=== PATIENT | female | born 1970 | race Caucasian/White ===

== ENCOUNTER → 2024-06-30 | Outpatient (CLI) | payer BC, SELFPAY ==
--- NOTE | 2024-06-30 15:30 | XR_ITS ---
Examination: CT pelvis without intravenous contrast. 2-D sagittal and coronal reconstructions. Date and time of exam:June 30, 2024 1600 hours INDICATIONS: Diagnosis left inguinal hernia without obstruction 5 months ago CTDI: vol (mGy) :10.5 DLP: (mGycm) : 330 Technique: Multiple 3 mm axial sections of the pelvis have been obtained with the 64 slice high resolution scanner. 2-D sagittal and coronal reconstructions. Low dose protocols were performed. One or more of the following dose reduction techniques were used; automated exposure control, adjustment of the mA and/or KV according to patient size, use of iterative reconstruction technique. Findings: Normal appendix No bowel obstruction Anterior fat-containing pelvic wall hernia defect, axial image 56, 20 mm Anteverted uterus Urinary bladder intact Stable sclerotic foci left acetabulum left iliac bone on right femoral head left ischium IMPRESSION: Anterior fat-containing pelvic wall hernia defect, axial image 56, measuring 20 mm
== END | disposition home or self-care (01) ==
PROVIDERS: PCP Family Medicine; Referring Provider Surgery; Visit Provider Surgery
DX: K40.90 Unilateral inguinal hernia, without obstruction or gangrene, not specified as recurrent (principal)
CPT/HCPCS: 72192

== ENCOUNTER 2024-07-27 06:50 | Day surgery (SDC) | payer BC, SELFPAY ==
[2024-07-26 07:34] VITALS: BMI 32.0
[2024-07-26 08:38] LABS: Basophils % (Auto) 1 % (0-2.5); Eosinophils # (Auto) 0.2 Thou/mm3 (0.0-0.5); Eosinophils % (Auto) 3 % (0-10); Hematocrit 38.1 % (36.0-46.0); Hemoglobin 12.7 g/dL (12.0-16.0); Immature Granulocytes % (Auto) 0 % (0-0); Immature Granulocytes Auto 0.02 Thou/mm3 (0.00-0.00); Lymphocytes # (Auto) 1.5 Thou/mm3 (1.0-4.8); Lymphocytes % (Auto) 26 % (10-50); Mean Corpuscular HGB Conc 33.3 g/dl (31.0-37.0); Mean Corpuscular Hemoglobin 29.6 pg (25.0-35.0); Mean Corpuscular Volume 89 fL (80-100); Monocytes # (Auto) 0.5 Thou/mm3 (0.0-0.8); Monocytes % (Auto) 8 % (0-12); Neutrophils # (Auto) 3.7 Thou/mm3 (1.8-7.7); Neutrophils % (Auto) 63 % (37-80); Nucleated Red Blood Cell % 0 /100 WBC (0); Platelet Count 255 Thou/mm3 (140-440); RDW Standard Deviation 42.1 fL (36.4-46.3); Red Blood Count 4.29 Miln/mm3 (4.00-5.20); White Blood Count 5.9 Thou/mm3 (3.6-11.0)
[2024-07-26 08:46] LABS: Partial Thromboplastin Time 27.1 Seconds (22.0-36.0); Prothrombin Time 10.9 Seconds (9.0-12.2)
[2024-07-26 08:53] LABS: Alanine Aminotransferase 18 U/L (10-49); Albumin, Serum 4.5 gm/dL (3.5-5.0); Albumin/Globulin Ratio 1.4 (1.2-2.2); Alkaline Phosphatase 91 U/L (46-116); Anion Gap 4 (7-16); Aspartate Amino Transferase 22 U/L (0-34); BUN/Creatinine Ratio 20 Ratio (12-20); Bilirubin,Total 0.3 mg/dL (0.3-1.2); Blood Urea Nitrogen 16 mg/dL (9-23); Calcium 9.3 mg/dL (8.3-10.6); Calcium (Corrected) 9.3 mg/dL (8.5-10.1); Carbon Dioxide 30.8 mMol/L (20.0-31.0); Chloride 105 mMol/L (98-107); Creatinine (Component) 0.8 mg/dL (0.6-1.3); Estimated Creatinine Clearance 85.7 mL/min (>60); Globulin 3.2 gm/dL (2.3-3.5); Glucose 99 mg/dL (74-106); Osmolality,Calculated 280 (275-295); Potassium 3.6 mMol/L (3.4-5.1); Sodium 140 mMol/L (136-145); Total Protein 7.7 gm/dL (5.7-8.2); eGFR > 60 See Note
[2024-07-27] VITALS (11 sets, daily range): BP systolic 111–137; BP diastolic 65–85; PULSE 64–89; RESP 13–21; TEMP 36.1–36.6; O2SAT 95–98; BMI 32.1
[2024-07-27] MEDS: RINGERS LACTATED 1000 ML 1,000 ML 20 ML IV (07:33)
--- NOTE | 2024-07-27 11:25 | SUR.PHASEI ---
pt received from OR in recovery bay 7. pt obtunded, breathing labored on oxymask 15, oral airway in place. v/s stable. pt dressing to lower abd cdi. report received from Mikey Elliott and Dr. Reed.
--- NOTE | 2024-07-27 11:31 | ESOP_ITS ---
Date of Procedure 07/27/24 Pre Op Diagnosis Incisional hernia over the left lower quadrant following TRAM flap Post Op Diagnosis Same Procedure Repair of the incisional hernia in the lower abdomen with placement of Ventralex ST 2.5 inches in diameter. Findings Patient was found to have a defect in the lower abdomen on the fascia which was presenting as an incisional hernia the defect measured about 5 cm in diameter requiring a mesh Procedure Description After the patient was brought to the operating room and due to clearances given. Cuevas catheter was inserted because of the lower abdominal incision. The lower abdomen and pelvic area was washed with ChloraPrep solution and draped in a sterile manner. Timeout was performed. Then I made an incision over the previous surgical scar which was used for the TRAM flap. This incision was about 5 to 6 cm in length. There was fair amount of subcutaneous tissue because of her obesity. Then I reached the fascia and found out that the patient had a defect of about 5 cm. I opened the defect and found out that there is a redundant peritoneum which presented as a sac. I excised the redundant sac and closed it with a 2-0 Vicryl. I was able to feel a mesh that was used during the reconstruction of the abdominal wall following this time flap. This mass was fairly large and extending over the anterior abdominal wall. The edge of the mesh was obviously the upper portion of the defect. The lower portion was closed to the inguinal ligament. I dissected out the tissues and then I placed the mesh see above the peritoneum after it was closed. The straps were attached to the edges using 2-0 Prolene. The subcutaneous tissue was then closed with 3- 0 chromic and 3-0 plain and the skin was closed with 4-0 Monocryl subcuticular stitch after injecting local anesthesia. Cuevas catheter was removed at the end of the procedure. Patient tolerated the procedure well and returned to recovery room in stable condition. Anesthesia GETA Implants 2.[address] mesh Pathology / specimen None IVF Infused 700 Estimated Blood Loss 20 Surgeon Lana Moss MD Surgical Staff Operation Date: 07/27/24 10:30 Case Staff Anesthesiologist: Quoc Reed RN First Assistant: Nani Bass
--- NOTE | 2024-07-27 11:41 | SUR.PHASEI ---
pt resting in [place] with eyes closed, responds to voice, breathing unlabored, dressing to lower left abdomen clean, dry, and intact, report from Curry PALAFOX
[2024-07-27] MEDS: fentaNYL CIT INJ 50 mCg/ML AMP 2ML 25 MCG IV ×2 (11:57→12:13)
--- NOTE | 2024-07-27 12:10 | SUR.PHASEII ---
pt tolerating oral fluids without difficulty swallowing or n/v
--- NOTE | 2024-07-27 12:15 | SUR.PHASEII ---
report to Curry PALAFOX
[2024-07-27] MEDS: ONDANSETRON INJ 2 MG/ML INJ 2 ML 4 MG IV (13:26)
--- NOTE | 2024-07-27 13:30 | SUR.PHASEII ---
pt awake and alert, breathing unlabored on room air. v/s stable. pt dressing to lower abd cdi. pt able to ambulate to wheelchair with steady gait. d/c instructions given with Joseluis in room using material hauler Pooja senior, all questions answered. pt d/c via wheelchair with all belongings.
== END 2024-07-27 13:30 | disposition home or self-care (01) ==
PROVIDERS: PCP Family Medicine; Referring Provider Surgery; Visit Provider Surgery
PROC: (CPT 49593; principal; 2024-07-27 10:15)
DX: K43.2 Incisional hernia without obstruction or gangrene (principal)
CPT/HCPCS: 49593; 36415; 80053; 85025; 85610; 85730; A4217; A4649; C1781; J1100; J1885; J2250; J2405; J2704; J3010; J3490; J7120

== ENCOUNTER → 2024-08-25 | Outpatient (CLI) | payer BC, SELFPAY ==
[2024-08-25 13:01] LABS: Basophils % (Auto) 1 % (0-2.5); Eosinophils # (Auto) 0.2 Thou/mm3 (0.0-0.5); Eosinophils % (Auto) 3 % (0-10); Hematocrit 37.8 % (36.0-46.0); Hemoglobin 13.5 g/dL (12.0-16.0); Immature Granulocytes % (Auto) 0 % (0-0); Immature Granulocytes Auto 0.02 Thou/mm3 (0.00-0.00); Lymphocytes # (Auto) 1.7 Thou/mm3 (1.0-4.8); Lymphocytes % (Auto) 28 % (10-50); Mean Corpuscular HGB Conc 35.7 g/dl (31.0-37.0); Mean Corpuscular Hemoglobin 31.1 pg (25.0-35.0); Mean Corpuscular Volume 87 fL (80-100); Monocytes # (Auto) 0.4 Thou/mm3 (0.0-0.8); Monocytes % (Auto) 7 % (0-12); Neutrophils # (Auto) 3.6 Thou/mm3 (1.8-7.7); Neutrophils % (Auto) 61 % (37-80); Nucleated Red Blood Cell % 0 /100 WBC (0); Platelet Count 286 Thou/mm3 (140-440); RDW Standard Deviation 40.6 fL (36.4-46.3); Red Blood Count 4.34 Miln/mm3 (4.00-5.20); White Blood Count 5.9 Thou/mm3 (3.6-11.0)
[2024-08-25 13:20] LABS: Alanine Aminotransferase 18 U/L (10-49); Albumin, Serum 4.4 gm/dL (3.5-5.0); Albumin/Globulin Ratio 1.4 (1.2-2.2); Alkaline Phosphatase 96 U/L (46-116); Anion Gap 9 (7-16); Aspartate Amino Transferase 19 U/L (0-34); BUN/Creatinine Ratio 26 Ratio (12-20); Bilirubin,Total 0.3 mg/dL (0.3-1.2); Blood Urea Nitrogen 18 mg/dL (9-23); Calcium 9.6 mg/dL (8.3-10.6); Calcium (Corrected) 9.6 mg/dL (8.5-10.1); Carbon Dioxide 28.1 mMol/L (20.0-31.0); Chloride 104 mMol/L (98-107); Creatinine (Component) 0.7 mg/dL (0.6-1.3); Globulin 3.1 gm/dL (2.3-3.5); Glucose 100 mg/dL (74-106); Osmolality,Calculated 283 (275-295); Potassium 4.2 mMol/L (3.4-5.1); Sodium 141 mMol/L (136-145); Total Protein 7.5 gm/dL (5.7-8.2); eGFR > 60 See Note
== END | disposition home or self-care (01) ==
PROVIDERS: PCP Family Medicine; Referring Provider Internal Medicine Hematology & Oncology; Visit Provider Internal Medicine Hematology & Oncology
DX: C50.411 Malignant neoplasm of upper-outer quadrant of right female breast (principal)
CPT/HCPCS: 36415; 80053; 85025

== ENCOUNTER 2024-08-31 09:27 | Outpatient (RCR) | payer BC, SELFPAY | END 2024-09-29 23:59 | disposition home or self-care (01) | LOC: SCTC 09:27 | PROVIDERS: PCP Family Medicine; Referring Provider Family Medicine; Visit Provider Nurse Practitioner Family | DX: Z08 Encounter for follow-up examination after completed treatment for malignant neoplasm (principal); Z85.3 Personal history of malignant neoplasm of breast; Z90.11 Acquired absence of right breast and nipple; Z92.21 Personal history of antineoplastic chemotherapy; Z92.29 Personal history of other drug therapy | CPT/HCPCS: 99212; G0463 ==

== ENCOUNTER → 2024-09-20 | Outpatient (CLI) | payer BC, SELFPAY ==
--- NOTE | 2024-09-20 14:45 | XR_ITS ---
Examination: Screening digital mammography, unilateral left Computer aided detection 3-D breast Tomosynthesis, unilateral Date and time of exam: September 20, 2024 1446 hrs. Compared to mammograms dating to September 29, 2017 Indication: Screening, personal history right breast cancer Technique: Nonmagnified MLO, CC views of the left breast to been obtained, reconstructed from 3-D Tomosynthesis images. R2 computer aided detection program utilized for evaluation of suspicious masses and/or abnormal calcifications. 3-D Tomosynthesis images obtained. Findings: The breast is heterogeneously dense, which may obscure small masses Benign calcifications No interval suspicious masses Impression: BI-RADS category II Benign findings Recommend 1 year follow-up mammogram.
== END | disposition home or self-care (01) ==
LOC: CDIM 14:28
PROVIDERS: PCP Family Medicine; Referring Provider Nurse Practitioner Family; Visit Provider Nurse Practitioner Family
DX: Z12.31 Encounter for screening mammogram for malignant neoplasm of breast (principal); R92.322 Mammographic fibroglandular density, left breast; R92.1 Mammographic calcification found on diagnostic imaging of breast; Z85.3 Personal history of malignant neoplasm of breast
CPT/HCPCS: 77063; 77067

== ENCOUNTER 2024-12-23 12:10 | Day surgery (SDC) | payer BC, SELFPAY ==
[2024-12-22 14:03] VITALS: BMI 31.2
[2024-12-23] VITALS (11 sets, daily range): BP systolic 111–133; BP diastolic 67–93; PULSE 60–78; RESP 13–18; TEMP 36.4–36.6; O2SAT 95–100; BMI 30.9
[2024-12-23] MEDS: MIDAZOLAM INJ 1 MG/ML VIAL 2 ML 2 MG IVP (13:41)
[2024-12-23] MEDS: fentaNYL CIT INJ 50 mCg/ML AMP 2ML IVP (13:45)
== END 2024-12-23 14:40 | disposition home or self-care (01) ==
PROVIDERS: Referring Provider Surgery; Visit Provider Surgery
PROC: 0DBE8ZX Excision of Large Intestine, Via Natural or Artificial Opening Endoscopic, Diagnostic (ICD-10-PCS; CPT 45380; principal; 2024-12-23 13:00)
DX: Z12.11 Encounter for screening for malignant neoplasm of colon (principal); K57.30 Diverticulosis of large intestine without perforation or abscess without bleeding; Z85.3 Personal history of malignant neoplasm of breast
CPT/HCPCS: 45378; J1200; J2250; J3010